=== PATIENT | male | born 1950 | race Caucasian/White ===

== ENCOUNTER → 2024-01-06 | Outpatient (CLI) | payer MEDICARE ==
[2024-01-06 18:50] LABS: ALBUMIN 3.8 G/DL (3.2-5.2); ALKALINE PHOSPHATASE 73 U/L (46-116); ALT/SGPT 24 U/L (7.0-40); AST/SGOT 17 U/L (<34); BILIRUBIN,TOTAL 1.4 MG/DL (0.3-1.2); BLOOD UREA NITROGEN 22 MG/DL (9-23); CALCIUM LEVEL 9.1 MG/DL (8.3-10.6); CARBON DIOXIDE LEVEL 26 MMOL/L (20-31); CHLORIDE LEVEL 104 MMOL/L (98-107); CHOLESTEROL LEVEL 149 MG/DL (<200); CHOLESTEROL RISK RATIO 2.47 (<5); CREATININE FOR GFR 0.95 MG/DL (0.70-1.30); GLOMERULAR FILTRATION RATE > 60.0 (>42); GLUCOSE, FASTING 99 MG/DL (74-106); HDL CHOLESTEROL 60.2 MG/DL (>40); NON-HDL-C 88.8 MG/DL; POTASSIUM SERUM 4.7 MMOL/L (3.5-5.1); PSA SCREENING 0.17 NG/ML (< 4.00); SODIUM LEVEL 139 MMOL/L (136-145); TRIGLYCERIDES LEVEL 74 MG/DL (<150)
[2024-01-06 19:00] LABS: BASO # 0.1 10^3/uL (0.0-0.2); EOS # 0.1 10^3/uL (0.0-0.5); EOS % 1.6 % (0.0-3.0); HEMOGLOBIN 14.1 g/dl (13.5-17.5); LYMPH # 1.6 10^3/uL (1.5-5.0); LYMPH % 25.4 % (24.0-44.0); MEAN CORPUSCULAR HEMOGLOBIN 30.9 pg (27.0-33.0); MEAN CORPUSCULAR HGB CONC 34.4 g/dl (32.0-36.5); MEAN CORPUSCULAR VOLUME 89.9 fl (80.0-96.0); MONO # 0.8 10^3/uL (0.0-0.8); MONO % 12.1 % (2.0-8.0); NEUTROPHILS # 3.7 10^3/uL (1.5-8.5); NEUTROPHILS % 59.6 % (36.0-66.0); PLATELET COUNT, AUTOMATED 266 10^3/uL (150-450); RED BLOOD COUNT 4.56 10^6/uL (4.30-6.10); WHITE BLOOD COUNT 6.2 10^3/uL (4.0-10.0)
[2024-01-06 20:20] LABS: HEMOGLOBIN A1c 5.5 % (4.0-6.0)
== END ==
LOC: M WUC 14:07
PROVIDERS: ATTEND Physician Assistant Medical
DX: J45.40 Moderate persistent asthma, uncomplicated (principal); I77.819 Aortic ectasia, unspecified site; R73.03 Prediabetes; E78.00 Pure hypercholesterolemia, unspecified; Z12.5 Encounter for screening for malignant neoplasm of prostate; M25.562 Pain in left knee; M17.12 Unilateral primary osteoarthritis, left knee; M85.862 Other specified disorders of bone density and structure, left lower leg
CPT/HCPCS: 36415; 73564; 80053; 80061; 83036; 84443; 85025; G0103

== ENCOUNTER → 2024-06-08 | Outpatient (CLI) | payer MEDICARE | LOC: M RAD 11:31 | PROVIDERS: ATTEND Physician Assistant Medical | DX: I71.40 Abdominal aortic aneurysm, without rupture, unspecified (principal) ==

== ENCOUNTER → 2024-07-08 | Outpatient (CLI) | payer MEDICARE ==
[2024-07-08 18:45] LABS: BASO # 0.1 10^3/uL (0.0-0.2); BASO % 0.8 % (0.0-1.0); EOS # 0.1 10^3/uL (0.0-0.5); EOS % 1.3 % (0.0-3.0); HEMATOCRIT 42.5 % (42.0-52.0); HEMOGLOBIN 14.3 g/dl (13.5-17.5); LYMPH # 1.7 10^3/uL (1.5-5.0); LYMPH % 22.3 % (24.0-44.0); MEAN CORPUSCULAR HEMOGLOBIN 29.9 pg (27.0-33.0); MEAN CORPUSCULAR HGB CONC 33.6 g/dl (32.0-36.5); MEAN CORPUSCULAR VOLUME 88.9 fl (80.0-96.0); MONO # 0.8 10^3/uL (0.0-0.8); MONO % 10.6 % (2.0-8.0); NEUTROPHILS # 4.8 10^3/uL (1.5-8.5); NEUTROPHILS % 64.7 % (36.0-66.0); PLATELET COUNT, AUTOMATED 306 10^3/uL (150-450); RED BLOOD COUNT 4.78 10^6/uL (4.30-6.10); WHITE BLOOD COUNT 7.4 10^3/uL (4.0-10.0)
[2024-07-08 19:09] LABS: BLOOD UREA NITROGEN 19 MG/DL (9-23); CARBON DIOXIDE LEVEL 28 MMOL/L (20-31); CHLORIDE LEVEL 108 MMOL/L (98-107); CHOLESTEROL LEVEL 126 MG/DL (<200); CHOLESTEROL RISK RATIO 1.98 (<5); CREATININE FOR GFR 0.79 MG/DL (0.70-1.30); GLOMERULAR FILTRATION RATE > 60.0 (>42); GLUCOSE, FASTING 121 MG/DL (74-106); HDL CHOLESTEROL 63.6 MG/DL (>40); LDL CHOLESTEROL 52.4 MG/DL (<100); NON-HDL-C 62.4 MG/DL; POTASSIUM SERUM 4.8 MMOL/L (3.5-5.1); SODIUM LEVEL 141 MMOL/L (136-145); TRIGLYCERIDES LEVEL 50 MG/DL (<150)
== END ==
LOC: M WUC 11:36
PROVIDERS: ATTEND Internal Medicine Cardiovascular Disease
DX: I50.9 Heart failure, unspecified (principal); E78.2 Mixed hyperlipidemia; R06.02 Shortness of breath; I48.0 Paroxysmal atrial fibrillation

== ENCOUNTER → 2024-07-22 | Outpatient (CLI) | payer MEDICARE | LOC: M WUC 13:36 | PROVIDERS: ATTEND Physician Assistant Medical | DX: R05.3 Chronic cough (principal) ==

== ENCOUNTER 2024-10-21 08:29 | Day surgery (SDC) | payer MEDICARE ==
[~2024-10-21] VITALS: Ht 182.9 cm; Wt 134.5 kg
[~2024-10-21 08:29] MED LIST: ARTH1TAB PO; ASHW500C PO; ASTA4CAP PO; BIOT1CAP2 PO; CURC500C PO; FLUT1BLS8; GING500C2 PO; MONT-5 PO; MONT10TA97 PO; MULTTAB61 PO; NUCA1INJ SC; PANT40TA29 PO; ROSU10TA61 PO; VITA100093 PO; [UNRECOGNIZED DRUG - CODE] PO
[2024-10-21] MEDS ORDERED: GLYCOPYRROLATE INJ 0.2 MG/ML 2 ML VIAL As Ordered ONE (08:37)
[2024-10-21] MEDS ORDERED: propofoL 200 MG/20 ML VIAL As Ordered ONE (08:37)
[2024-10-21] MEDS ORDERED: LIDOCAINE 2% 100MG/5ML SDV (FOR ANES.) As Ordered ONE (08:37)
[2024-10-21 10:17] VITALS: TEMP 97.4
[2024-10-21 10:35] VITALS: BP 121/74; O2SAT 95
== END 2024-10-21 10:40 | disposition home or self-care (01) ==
LOC: M OPP 08:29
PROVIDERS: ATTEND Internal Medicine Gastroenterology
DX: D12.4 Benign neoplasm of descending colon (principal); D12.2 Benign neoplasm of ascending colon; K57.30 Diverticulosis of large intestine without perforation or abscess without bleeding; K64.8 Other hemorrhoids; Z86.0100 Personal history of colon polyps, unspecified; G47.30 Sleep apnea, unspecified; Z79.51 Long term (current) use of inhaled steroids; J45.909 Unspecified asthma, uncomplicated
CPT/HCPCS: 45385; 88305; J1596

== ENCOUNTER → 2025-02-14 | Outpatient (REF) | payer MEDICARE ==
[2025-02-14 18:11] LABS: PSA SCREENING 0.36 NG/ML (< 4.00)
[2025-02-14 18:13] LABS: ALT/SGPT 20 U/L (7.0-40); AST/SGOT 19 U/L (<34); CALCIUM LEVEL 9.2 MG/DL (8.3-10.6); CARBON DIOXIDE LEVEL 28 MMOL/L (20-31); CHLORIDE LEVEL 105 MMOL/L (98-107); CHOLESTEROL LEVEL 117 MG/DL (<200); CHOLESTEROL RISK RATIO 1.99 (<5); CREATININE FOR GFR 0.81 MG/DL (0.70-1.30); GLOMERULAR FILTRATION RATE > 90.0 (>42); LDL CHOLESTEROL 43.7 MG/DL (<100); NON-HDL-C 58.3 MG/DL; POTASSIUM SERUM 4.7 MMOL/L (3.5-5.1); SODIUM LEVEL 142 MMOL/L (136-145); TRIGLYCERIDES LEVEL 73 MG/DL (<150)
[2025-02-14 18:16] LABS: BASO # 0.1 10^3/uL (0.0-0.2); BASO % 0.7 % (0.0-1.0); EOS # 0.1 10^3/uL (0.0-0.5); EOS % 1.2 % (0.0-3.0); LYMPH # 1.3 10^3/uL (1.5-5.0); LYMPH % 17.3 % (24.0-44.0); MONO # 0.6 10^3/uL (0.0-0.8); MONO % 8.7 % (2.0-8.0); NEUTROPHILS # 5.2 10^3/uL (1.5-8.5); NEUTROPHILS % 71.8 % (36.0-66.0); PLATELET COUNT, AUTOMATED 281 10^3/uL (150-450)
[2025-02-14 18:44] LABS: ESTIMATED AVERAGE GLUCOSE 120.0 MG/DL (60-110)
== END ==
LOC: M SFHCCAPE 10:15
PROVIDERS: ATTEND Physician Assistant Medical
DX: K21.9 Gastro-esophageal reflux disease without esophagitis (principal); I71.40 Abdominal aortic aneurysm, without rupture, unspecified; R73.01 Impaired fasting glucose; E78.00 Pure hypercholesterolemia, unspecified; Z12.5 Encounter for screening for malignant neoplasm of prostate
CPT/HCPCS: 80053; 80061; 83036; 85025; G0103

== ENCOUNTER 2025-05-14 21:29 | Emergency (ER) | payer MEDICARE ==
[~2025-05-14] VITALS: Ht 177.8 cm; Wt 126.8 kg
[~2025-05-14 21:29] MED LIST changes: -ROSU10TA61 PO; +ROSU10TA90 PO
[2025-05-14 21:32] VITALS: TEMP 99.2
[2025-05-14 22:21] LABS: BASO # 0.0 10^3/uL (0.0-0.2); BASO % 0.4 % (0.0-1.0); EOS # 0.1 10^3/uL (0.0-0.5); EOS % 0.9 % (0.0-3.0); LYMPH # 1.9 10^3/uL (1.5-5.0); LYMPH % 19.9 % (24.0-44.0); MONO # 1.1 10^3/uL (0.0-0.8); MONO % 11.8 % (2.0-8.0); NEUTROPHILS # 6.2 10^3/uL (1.5-8.5); NEUTROPHILS % 66.7 % (36.0-66.0); PLATELET COUNT, AUTOMATED 298 10^3/uL (150-450)
[2025-05-14 22:43] LABS: INR 1.03
[2025-05-14] MEDS: MORPHINE 4 MG/ML 1 ML VIAL IV PRN (22:52)
[2025-05-14 22:56] LABS: ALT/SGPT 12 U/L (7.0-40); AST/SGOT 18 U/L (<34); CALCIUM LEVEL 8.3 MG/DL (8.3-10.6); CARBON DIOXIDE LEVEL 29 MMOL/L (20-31); CHLORIDE LEVEL 103 MMOL/L (98-107); CK-MB VALUE MASS < 1.0 NG/ML (<3.6); CREATININE FOR GFR 0.73 MG/DL (0.70-1.30); GLOMERULAR FILTRATION RATE > 90.0 (>42); POTASSIUM SERUM 4.4 MMOL/L (3.5-5.1); SODIUM LEVEL 140 MMOL/L (136-145)
[2025-05-14 23:00] LABS: FREE T4 1.23 NG/DL (0.89-1.76)
[2025-05-14 23:01] LABS: CPK CREATINE PHOSPHOKINASE 108 U/L (46-171)
[2025-05-15 00:12] VITALS: BP 125/71; O2SAT 97
== END 2025-05-15 00:12 | disposition home or self-care (01) ==
LOC: M ED 21:29
DX: M25.512 Pain in left shoulder (principal); J45.909 Unspecified asthma, uncomplicated; I71.40 Abdominal aortic aneurysm, without rupture, unspecified; Z79.899 Other long term (current) drug therapy